=== PATIENT | male | born 1995 | race Caucasian/White ===

== ENCOUNTER 2025-05-27 09:04 | Emergency (ER) | payer MEDICAID, OTHER ==
[~2025-05-27] VITALS: Ht 175.3 cm; Wt 66.8 kg
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
[2025-05-27 10:58] LABS: Hematocrit 44.1 % (41.0-53.0); Hemoglobin 14.9 g/dL (13.5-17.5); Mean Corpuscular Hemoglobin 29.9 pg (28.0-32.0); Mean Corpuscular Volume 88.7 fL (80.0-100.0); Nucleated Red Blood Cells % 0.1 %
[2025-05-27 11:10] LABS: Urine Protein, UAD Negative (Negative)
[2025-05-27 11:19] LABS: INR 0.96 (0.9-1.15); Partial Thromboplastin Time 30.8 SEC (24.5-34.5); Prothrombin Time 10.2 sec (9.3-11.8)
[2025-05-27 11:45] LABS: Alanine Aminotransferase 24 U/L (7-40); Albumin 4.6 g/dL (3.2-4.8); Alkaline Phosphatase 91 U/L (46-116); Anion Gap 5 (5-15); BUN/Creatinine Ratio 14.3 (10.0-20.0); Blood Urea Nitrogen 10 mg/dL (9-23); Calcium 9.4 mg/dL (8.7-10.4); Carbon Dioxide 30 mmol/L (20-31); Chloride 105 mmol/L (98-107); Glucose 95 mg/dL (74-106); Potassium 4.4 mmol/L (3.5-5.1); Sodium 140 mmol/L (136-145); Total Protein 7.5 g/dL (5.7-8.2)
[2025-05-27 11:51] VITALS: BP 123/91; PULSE 77; RESP 18; TEMP 98.4; O2SAT 100
[2025-05-27 11:56] LABS: Bilirubin, Total 0.3 mg/dL (0.2-1.0)
--- NOTE | 2025-05-27 12:00 | DVH ---
CLINICAL INFORMATION: 30 years old, Male; testicle pain. TECHNIQUE: Grayscale sonographic imaging of the testicles and scrotal contents was performed , assisted by color doppler technique. Duplex doppler ultrasound of both testicles was performed. COMPARISON: None FINDINGS: The right testicle measures 3.8 x 2.2 x 3.0 cm, within normal limits. Unremarkable echogenicity of the right testicle. Arterial and venous blood flow demonstrated. Epididymis appears heterogeneous, with vascular flow within normal limits. Small hydrocele. The left testicle measures 3.4 x 2.4 x 2.7 cm, within normal limits. Unremarkable echogenicity of the left testicle. Arterial and venous blood flow demonstrated. Heterogeneous left epididymis with normal vascular flow. Small hydrocele. IMPRESSION: 1. No sonographic evidence of testicular torsion. 2. Unremarkable sonographic appearance of both testicles. 3. Heterogeneous appearance of both epididymides, without significant increased vascular flow to suggest epididymitis. 4. Small bilateral hydroceles.
== END 2025-05-27 13:38 | disposition left against medical advice (07) ==
LOC: ER 09:04
DX: N50.812 Left testicular pain (principal)
CPT/HCPCS: 36415; 76870; 80053; 81001; 85025; 85610; 85730